=== PATIENT | female | born 1940 | race Two or more races ===

== ENCOUNTER 2021-04-25 04:32 | Day surgery (SDC) | payer OTHER ==
[2021-04-24 11:49] VITALS: BMI 28.1
[2021-04-25] MEDS ORDERED: LIDOCAINE HCL/PF 1% SDV 5ML VIAL ONE (15:59)
[2021-04-25] MEDS ORDERED: LIDOCAINE HCL 1% PRESERVATIVE FREE - 30ML VIAL IJ ONE (16:16)
[2021-04-25 17:12] VITALS: BP 155/85; PULSE 71; TEMP 98.4
== END 2021-04-25 18:05 | disposition home or self-care (01) ==
LOC: JASU-SURG 04:32
PROVIDERS: ATTEND Pain Medicine Pain Medicine
PROC: 01HY3MZ Insertion of Neurostimulator Lead into Peripheral Nerve, Percutaneous Approach (ICD-10-PCS; principal; 2021-04-25 17:00)
DX: G89.4 Chronic pain syndrome (principal); M25.569 Pain in unspecified knee
CPT/HCPCS: 64555; C1897